=== PATIENT | female | born 1935 | race American Indian/Alaskan Native ===

== ENCOUNTER 2018-10-28 09:22 | Inpatient (IN) | payer MEDICARE ==
[2018-10-28] MEDS ORDERED: Dextrose 50% SYRINGE Inj (50 ml) IVP STA (09:54)
[2018-10-28 10:14] LABS: BASO # 0.01 K/mm3 (0.0-2.0); BASO % 0.2 % (0.0-3.0); EOS # 0.1 (0.0-0.7); GRAN # 4.75 (1.4-6.5); GRAN % 75.6 % (50.0-68.0); HEMOGLOBIN 8.7 g/dL (12.0-16.0); LYMPH # 0.8 (1.2-3.4); LYMPH % 13.2 % (22.0-35.0); MEAN CELL VOLUME 88.5 fl (80.0-105.0); MEAN CORPUSCULAR HEMOGLOBIN 25.7 pg (25.0-35.0); MEAN CORPUSCULAR HGB CONC 29.1 g/dl (31.0-37.0); MEAN PLATELET VOLUME 11.7 fl (7.0-11.0); MONO # 0.6 (0.1-0.6); RBC 3.38 10^6/uL (3.5-6.1); RED CELL DISTRIBUTION WIDTH 16.7 % (11.5-14.5); WHITE BLOOD COUNT 6.3 10^3/uL (4.5-11.0)
[2018-10-28 10:23] LABS: INR 1.06; PARTIAL THROMBOPLASTIN TIME 27.8 Seconds (25.1-36.5); PROTHROMBIN TIME 12.2 SECONDS (9.4-12.5)
--- NOTE | 2018-10-28 10:40 | RAD ---
Date of service: 10/28/2018 HISTORY: admission COMPARISON: No prior. FINDINGS: LUNGS: Moderate vascular congestion PLEURA: Right-sided pleural effusion CARDIOVASCULAR: Aortic calcification. Moderate cardiomegaly. Moderate vascular congestion OSSEOUS STRUCTURES: No significant abnormalities. VISUALIZED UPPER ABDOMEN: Normal. OTHER FINDINGS: None. IMPRESSION: Moderate cardiomegaly and moderate vascular congestion with right-sided pleural effusion
--- NOTE | 2018-10-28 12:36 | ED PDOC ---
Arrival/HPI - General Chief Complaint: Altered Mental Status Time Seen by Provider: 10/28/18 09:45 Historian: Patient, EMS - History of Present Illness Narrative History of Present Illness (Text): 10/28/18 12:42 83 year old female, whose past medical history includes hypertension, diabetes, arthritis, and a cholecystectomy, presents to the emergency department complaining of hypoglycemia. Patient was sent in from halfway, they report a sugar level of 33. EMS was called and they administered 2 glucagon in field, patient sugar level increased to 53. Patient was seen immediately upon arrival and a repeat finger stick was taken which was reportedly 113. On arrival patient denies any somatic complaints, fevers, chills, headache, dizziness, chest pain, shortness of breath, dyspnea on exertion, cough, abdominal pain, nausea, vomiting, diarrhea, back pain, neck pain, or any other complaint. PMD: Dr. Bean Time/Duration: Prior to Arrival Symptom Onset: Gradual Symptom Course: Improving Activities at Onset: Light Context: Home (halfway) Past Medical History - Provider Review Nursing Documentation Reviewed: Yes - Infectious Disease Hx of Infectious Diseases: None - Cardiac Hx Cardiac Disorders: Yes Hx Hypertension: Yes - Pulmonary Hx Respiratory Disorders: No - Neurological Hx Neurological Disorder: No - HEENT Hx HEENT Disorder: No - Renal Hx Renal Disorder: No - Endocrine/Metabolic Hx Endocrine Disorders: Yes Hx Diabetes Mellitus Type 2: Yes - Hematological/Oncological Hx Blood Disorders: No - Integumentary Hx Dermatological Disorder: No - Musculoskeletal/Rheumatological Hx Musculoskeletal Disorders: Yes Hx Arthritis: Yes Hx Falls: No - Gastrointestinal Hx Gastrointestinal Disorders: No Hx Crohn's Disease: No Hx Diverticulitis: No Hx Gall Bladder Disease: No Hx Gastritis: No Hx Pancreatitis: No - Genitourinary/Gynecological Hx Genitourinary Disorders: No - Psychiatric Hx Psychophysiologic Disorder: No Hx Substance Use: No - Surgical History Hx Cholecystectomy: Yes (over 10 yrs. ago) - Anesthesia Hx Anesthesia: Yes Hx Anesthesia Reactions: No Hx Malignant Hyperthermia: No Family/Social History - Physician Review Nursing Documentation Reviewed: Yes Family/Social History: No Known Family HX Smoking Status: Former Smoker Hx Alcohol Use: No Hx Substance Use: No Allergies/Home Meds Allergies/Adverse Reactions: Allergies No Known Allergies Allergy (Verified 09/26/18 18:03) Review of Systems - Physician Review All systems were reviewed & negative as marked: Yes - Review of Systems Constitutional: absent: Fevers Respiratory: absent: SOB, Cough Cardiovascular: absent: Chest Pain Gastrointestinal: absent: Abdominal Pain, Diarrhea, Nausea, Vomiting Musculoskeletal: absent: Back Pain, Neck Pain Neurological: absent: Headache, Dizziness Physical Exam Vital Signs Reviewed: Yes Vital Signs Temp 10/28/18 10:10 93.1 F L Temperature: Hypothermic Appearance: Positive for: Well-Appearing, Non-Toxic, Comfortable Pain Distress: None Mental Status: Positive for: Alert and Oriented X 3 - Systems Exam Head: Present: Atraumatic, Normocephalic Pupils: Present: PERRL Extroacular Muscles: Present: EOMI Conjunctiva: Present: Normal Mouth: Present: Moist Mucous Membranes Neck: Present: Normal Range of Motion Respiratory/Chest: Present: Clear to Auscultation, Good Air Exchange. No: Respiratory Distress, Accessory Muscle Use Cardiovascular: Present: Regular Rate and Rhythm, Normal S1, S2. No: Murmurs Abdomen: No: Tenderness, Distention, Peritoneal Signs Back: Present: Normal Inspection Upper Extremity: Present: Normal Inspection. No: Cyanosis, Edema Lower Extremity: Present: Normal Inspection. No: Edema Neurological: Present: GCS=15, CN II-XII Intact, Speech Normal Skin: Present: Warm, Dry, Normal Color, Cold (hypothermic temp of 93.1 ). No: Rashes Psychiatric: Present: Alert, Oriented x 3, Normal Insight, Normal Concentration Medical Decision Making ED Course and Treatment: 10/28/18 12:35 Impression: 83 year old female who presents to the emergency department for hypoglycemia. Plan: -- EKG -- Labs -- Chest X-ray -- Dextrose -- Urinalysis -- Reassess and disposition Progress Notes: 10/28/18 12:[address] Bean, while in emergency department and he saw patient by the bedside in emergency department and accepted pt to her service. Requested Dr. Stevenson consult. 10/28/18 19:06 Labs was reviewed she was anemic which is comparable to her previous lab. elevated Cr was noted which was also comparable to her previous labs. Chest xray IMPRESSION: Moderate cardiomegaly and moderate vascular congestion with right-sided pleural effusion EKG NSR @ 69bpm. LBBB. None-STEMI Pt remained AAO x3 in emergency department . She was however hypothermic and bear hugger was ordered while in emergency department . Hypothermia could be secondary to hypoglycemia. She was however started on empiric abx. Blood culture pending. - Lab Interpretations Lab Results: 10/28/18 10:00 Lab Results 10/28/18 10:59: POC Glucose (mg/dL) 113 H 10/28/18 10:00: PT 12.2, INR 1.06, APTT 27.8 10/28/18 10:00: WBC 6.3, RBC 3.38 L, Hgb 8.7 L, Hct 29.9 L, MCV 88.5, MCH 25.7, MCHC 29.1 L, RDW 16.7 H, Plt Count 276, MPV 11.7 H, Gran % 75.6 H, Lymph % (Auto) 13.2 L, [place] % (Auto) 10.0 H, Eos % (Auto) 1.0 L, Baso % (Auto) 0.2, Gran # 4.75, Lymph # (Auto) 0.8 L, [place] # (Auto) 0.6, Eos # (Auto) 0.1, Baso # (Auto) 0.01 10/28/18 09:33: POC Glucose (mg/dL) 59 L - RAD Interpretation Radiology Orders: 10/28/18 09:53 CHEST PORTABLE [RAD] Stat - Medication Orders Current Medication Orders: Discontinued Medications Dextrose (Dextrose 50% Inj) 50 ml IVP STAT STA Stop: 10/28/18 09:55 Last Admin: 10/28/18 10:09 Dose: 50 ml IVP Administration Document 10/28/18 10:09 AMA (Rec: 10/28/18 10:09 AMA [id number]) Charges for Administration # of IVP Administrations 1 - Scribe Statement The provider has reviewed the documentation as recorded by the Westonibgladys Mark Provider Scribe Attestation: All medical record entries made by the Scribe were at my direction and personally dictated by me. I have reviewed the chart and agree that the record accurately reflects my personal performance of the history, physical exam, medical decision making, and the department course for this patient. I have also personally directed, reviewed, and agree with the discharge instructions and disposition. Disposition/Present on Arrival - Present on Arrival Any Indicators Present on Arrival: No History of DVT/PE: No History of Uncontrolled Diabetes: Yes Urinary Catheter: No History of Decub. Ulcer: No History Surgical Site Infection Following: None - Disposition Have Diagnosis and Disposition been Completed?: Yes Diagnosis: Pleural effusion, Hypoglycemia, Hypothermia, CKD (chronic kidney disease), Anemia Disposition: HOSPITALIZED Disposition Time: 12:45 Patient Plan: Admission Patient Problems: Current Active Problems Problem Status Onset CKD (chronic kidney disease) Acute Hypoglycemia Acute Hypothermia Acute Pleural effusion Acute Condition: FAIR
[2018-10-28] MEDS ORDERED: Piperacillin/Tazobact 2.25gm 2.25 GM/100 ML BAG IVPB STA (12:52)
[2018-10-28] MEDS ORDERED: Vancomycin 1gm in NS 250ml 1 GM/250 ML BAG IVPB STA (12:52)
[2018-10-28 12:59] LABS: ALB/GLOB RATIO 0.8 (1.1-1.8); ALBUMIN 2.9 g/dL (3.0-4.8); CALCIUM 8.5 mg/dL (8.4-10.5)
[2018-10-28 13:44] LABS: TROPONIN I 0.03 ng/mL
--- NOTE | 2018-10-28 14:53 | CARD ---
APPROVED REPORT Date of service: 10/28/2018 EKG Measurement Heart [id number] <Conclusion> Normal sinus rhythm Left bundle branch block
[2018-10-28 16:05] LABS: VENOUS BLOOD GAS BASE EXCESS 3.4 mmol/L (0.0-2.0); VENOUS BLOOD GAS PO2 132 mm/Hg (30-55); VENOUS BLOOD PH 7.42 (7.32-7.43)
[2018-10-28] MEDS: Albuterol-Ipratrop 3 mg / 0.5 (3 ml) UD IH SCH (19:30)
--- NOTE | 2018-10-28 19:35 | CP.PCM.CON ---
History of Present Illness - History of Present Illness History of Present Illness: Infectious Disease Consultation: October 28, 2018 83 yo AA female with PMHx of hypertension, arthritis, and diabetes presented to [facility] with hypoglycemia The patient is a [facility] resident. Glucose of 33 in the field. Patient appears awake and alert now. Patient was hypothermic on admission with temperature down to 93.1 F. PMHx: Hypertension, Arthritis, Diabetes. PSHx: Cholecystectomy 10 yrs ago. Allergies: NKDA Social Hx: No tobacco, EtOH, or illicit drug use Active Medications Albuterol/Ipratropium (Duoneb 3 Mg/0.5 Mg (3 Ml) Ud) 3 ml IH [id number] DOUGLAS Atorvastatin Calcium (Lipitor) 10 mg PO DIN [facility] Last Admin: 10/28/18 17:12 Dose: 10 mg Docusate Sodium (Colace) 100 mg PO TID [facility] Last Admin: 10/28/18 17:12 Dose: 100 mg Ferrous Sulfate (Feosol) 324 mg PO DAILY DOUGLAS Furosemide (Lasix) 40 mg PO DAILY DOUGLAS Gabapentin (Neurontin) 100 mg PO TID [facility]; Protocol Last Admin: 10/28/18 17:12 Dose: 100 mg Guaifenesin (Robitussin) 200 mg PO Q4H PRN PRN Reason: Cough and congestion Hydralazine HCl (Apresoline) 100 mg PO TID [facility] Last Admin: 10/28/18 17:12 Dose: 100 mg Insulin Human Regular (Humulin R Low) 0 units SC ACHS [facility]; Protocol Lactulose (Enulose) 20 gm PO DAILY PRN PRN Reason: Constipation Levofloxacin (Levaquin) 500 mg PO DAILY [facility]; Protocol Methylprednisolone (Solu-Medrol) 60 mg IVP Q6 [facility] Last Admin: 10/28/18 17:12 Dose: 60 mg Pantoprazole Sodium (Protonix Ec Tab) 20 mg PO 0600,1600 [facility] Vitamin B Complex/Vit C/Folic Acid (Nephro-Quin) 1 tab PO 0800 [facility] Family Hx: None given ROS: Hypothermia, Hypoglycemia No chest pain, abdominal pain, melena, hematuria, hematemesis, hematochezia, depression, anxiety, diarrhea, vomiting Past Patient History - Infectious Disease Hx of Infectious Diseases: None - Past Medical History & Family History Past Medical History?: Yes - Past Social History Smoking Status: Former Smoker - CARDIAC Hx Cardiac Disorders: Yes Hx Hypertension: Yes - PULMONARY Hx Respiratory Disorders: No - NEUROLOGICAL Hx Neurological Disorder: No - HEENT Hx HEENT Problems: No - RENAL Hx Chronic Kidney Disease: No - ENDOCRINE/METABOLIC Hx Endocrine Disorders: Yes Hx Diabetes Mellitus Type 2: Yes - HEMATOLOGICAL/ONCOLOGICAL Hx Blood Disorders: No - INTEGUMENTARY Hx Dermatological Problems: No - MUSCULOSKELETAL/RHEUMATOLOGICAL Hx Musculoskeletal Disorders: Yes Hx Arthritis: Yes Hx Falls: No - GASTROINTESTINAL Hx Gastrointestinal Disorders: No Hx Crohn's Disease: No Hx Diverticulitis: No Hx Gall Bladder Disease: No Hx Gastritis: No Hx Pancreatitis: No - GENITOURINARY/GYNECOLOGICAL Hx Genitourinary Disorders: No - PSYCHIATRIC Hx Psychophysiologic Disorder: No Hx Substance Use: No - SURGICAL HISTORY Hx Cholecystectomy: Yes (over 10 yrs. ago) - ANESTHESIA Hx Anesthesia: Yes Hx Anesthesia Reactions: No Hx Malignant Hyperthermia: No Meds Allergies/Adverse Reactions: Allergies Allergy/AdvReac Type Severity Reaction Status Date / Time No Known Allergies Allergy Verified 09/26/18 18:03 - Medications Medications: Current Medications Albuterol/Ipratropium (Duoneb 3 Mg/0.5 Mg (3 Ml) Ud) 3 ml IH [id number] [facility] Atorvastatin Calcium (Lipitor) 10 mg PO DIN [facility] Last Admin: 10/28/18 17:12 Dose: 10 mg Docusate Sodium (Colace) 100 mg PO TID [facility] Last Admin: 10/28/18 17:12 Dose: 100 mg Ferrous Sulfate (Feosol) 324 mg PO DAILY [facility] Furosemide (Lasix) 40 mg PO DAILY [facility] Gabapentin (Neurontin) 100 mg PO TID [facility]; Protocol Last Admin: 10/28/18 17:12 Dose: 100 mg Guaifenesin (Robitussin) 200 mg PO Q4H PRN PRN Reason: Cough and congestion Hydralazine HCl (Apresoline) 100 mg PO TID [facility] Last Admin: 10/28/18 17:12 Dose: 100 mg Insulin Human Regular (Humulin R Low) 0 units SC ACHS [facility]; Protocol Lactulose (Enulose) 20 gm PO DAILY PRN PRN Reason: Constipation Levofloxacin (Levaquin) 500 mg PO DAILY [facility]; Protocol Methylprednisolone (Solu-Medrol) 60 mg IVP Q6 [facility] Last Admin: 10/28/18 17:12 Dose: 60 mg Pantoprazole Sodium (Protonix Ec Tab) 20 mg PO 0600,1600 DOUGLAS Vitamin B Complex/Vit C/Folic Acid (Nephro-Quin) 1 tab PO 0800 [facility] Physical Exam - Constitutional Appears: Non-toxic, No Acute Distress, Chronically Ill - Head Exam Head Exam: ATRAUMATIC, NORMOCEPHALIC - Eye Exam Eye Exam: EOMI, PERRL Pupil Exam: NORMAL ACCOMODATION, PERRL - ENT Exam ENT Exam: Mucous Membranes Moist, Normal External Ear Exam, TM's Normal Bilaterally - Neck Exam Neck exam: Positive for: Full Rom, Normal Inspection - Respiratory Exam Respiratory Exam: Clear to Auscultation Bilateral, NORMAL BREATHING PATTERN. absent: Rales, Rhonchi, Wheezes - Cardiovascular Exam Cardiovascular Exam: REGULAR RHYTHM, RRR, +S1, +S2 - GI/Abdominal Exam GI & Abdominal Exam: Normal Bowel Sounds, Soft. absent: Distended, Tenderness - Extremities Exam Extremities exam: Positive for: full ROM, normal inspection - Neurological Exam Neurological exam: Alert, CN II-XII Intact, Oriented x3 - Psychiatric Exam Psychiatric exam: Normal Affect, Normal Mood - Skin Skin Exam: Intact, Normal Color Results - Vital Signs Recent Vital Signs: Last Vital Signs Temp 97.6 F 10/28/18 16:25 Pulse 78 10/28/18 16:25 Resp 18 10/28/18 16:25 BP 183/65 H 10/28/18 16:25 Pulse Ox 99 10/28/18 16:25 - Labs Result Diagrams: 10/28/18 10:00 10/28/18 12:27 Labs: Laboratory Results - last 24 hr 10/28/18 10/28/18 10/28/18 09:33 10:00 10:00 WBC 6.3 RBC 3.38 L Hgb 8.7 L Hct 29.9 L MCV 88.5 MCH 25.7 MCHC 29.1 L RDW 16.7 H Plt Count 276 MPV 11.7 H Gran % 75.6 H Lymph % (Auto) 13.2 L Pierce % (Auto) 10.0 H Eos % (Auto) 1.0 L Baso % (Auto) 0.2 Gran # 4.75 Lymph # (Auto) 0.8 L Pierce # (Auto) 0.6 Eos # (Auto) 0.1 Baso # (Auto) 0.01 PT 12.2 INR 1.06 APTT 27.8 pO2 VBG pH VBG pCO2 VBG HCO3 VBG Total CO2 VBG O2 Sat (Calc) VBG Base Excess VBG Potassium Glucose Lactate FiO2 Sodium Potassium Chloride Carbon Dioxide Anion Gap BUN Creatinine Est GFR ( Amer) Est GFR (Non-Af Amer) POC Glucose (mg/dL) 59 L Random Glucose Calcium Magnesium Total Bilirubin AST ALT Alkaline Phosphatase Lactate Dehydrogenase Total Creatine Kinase Troponin I Total Protein Albumin Globulin Albumin/Globulin Ratio Venous Blood Potassium Influenza Typ A,B (EIA) 10/28/18 10/28/18 10/28/18 10:59 12:27 13:40 WBC RBC Hgb Hct MCV MCH MCHC RDW Plt Count MPV Gran % Lymph % (Auto) Pierce % (Auto) Eos % (Auto) Baso % (Auto) Gran # Lymph # (Auto) Pierce # (Auto) Eos # (Auto) Baso # (Auto) PT INR APTT pO2 VBG pH VBG pCO2 VBG HCO3 VBG Total CO2 VBG O2 Sat (Calc) VBG Base Excess VBG Potassium Glucose Lactate FiO2 Sodium 144 Potassium 4.3 Chloride 108 H Carbon Dioxide 29 Anion Gap 11 BUN 33 H Creatinine 2.7 H Est GFR ( Amer) 20 Est GFR (Non-Af Amer) 17 POC Glucose (mg/dL) 113 H Random Glucose 102 Calcium 8.5 Magnesium 1.8 Total Bilirubin 0.2 AST 20 ALT 19 Alkaline Phosphatase 139 H D Lactate Dehydrogenase 530 Total Creatine Kinase 31 L Troponin I 0.03 Total Protein 6.7 Albumin 2.9 L Globulin 3.8 Albumin/Globulin Ratio 0.8 L Venous Blood Potassium Influenza Typ A,B (EIA) Negative for flu a/b 10/28/18 10/28/18 10/28/18 14:40 15:50 16:21 WBC RBC Hgb Hct MCV MCH MCHC RDW Plt Count MPV Gran % Lymph % (Auto) Pierce % (Auto) Eos % (Auto) Baso % (Auto) Gran # Lymph # (Auto) Pierce # (Auto) Eos # (Auto) Baso # (Auto) PT INR APTT pO2 132 H VBG pH 7.42 VBG pCO2 44.0 VBG HCO3 28.5 H VBG Total CO2 29.9 H VBG O2 Sat (Calc) 99.5 H VBG Base Excess 3.4 H VBG Potassium 4.4 Glucose 77 Lactate 0.8 FiO2 21.0 Sodium 143.0 Potassium Chloride 109.0 H Carbon Dioxide Anion Gap BUN Creatinine Est GFR ( Amer) Est GFR (Non-Af Amer) POC Glucose (mg/dL) 60 L 64 L Random Glucose Calcium Magnesium Total Bilirubin AST ALT Alkaline Phosphatase Lactate Dehydrogenase Total Creatine Kinase Troponin I Total Protein Albumin Globulin Albumin/Globulin Ratio Venous Blood Potassium 4.4 Influenza Typ A,B (EIA) Assessment & Plan - Assessment and Plan (Free Text) Assessment: 83 yo AA female with hypoglycemia and hypothermia on presentation from [facility]. No leukocytosis. Chest X-ray showing moderate cardiomegaly and moderate vascular congestion with right sided pleural effusion. Started on Vancomycin IV and Zosyn. Continue with Zosyn for now. Supportive care. Check urine culture and analysis. Given hypothermia, must rule out sepsis. Supportive care. Thank you for allowing me to participate in the care of the patient, we will follow with you.
[2018-10-28] MEDS: Piperacillin/Tazobact 2.25gm 2.25 GM/100 ML BAG IVPB SCH (22:22)
[2018-10-28 22:27] VITALS: BMI 35.4
[2018-10-28] MEDS ORDERED: Pneumococcal 23-Valent Vaccine IM ONE (22:27)
[2018-10-28] MEDS ORDERED: Influenza Vaccine 60 mcg/0.5 mL SYR (4YR UP) IM ONE (22:27)
[2018-10-28] MEDS: Insulin Reg-LOW-Coverage SC SCH (23:57)
[2018-10-29] MEDS: Albuterol-Ipratrop 3 mg / 0.5 (3 ml) UD IH SCH ×7 (00:01→23:19)
--- NOTE | 2018-10-29 00:51 | HP ---
DATE OF EXAM: 10/28/2018 The patient is an 83-year-old female. The patient was seen and examined on 10/28/2018 in the emergency room. CHIEF COMPLAINT: Altered mental status. HISTORY OF PRESENT ILLNESS: Ms. Lisa Armendariz is an 83-year-old female with past medical history of hypertension, diabetes mellitus, arthritis, and cholecystectomy, came to the Emergency Department, complaining of hypoglycemia. The patient was in [facility], was sent from there for low sugar level of 33. EMS was called and they administered 2 Glucagon in the field. The patient's sugar increased to 53. The patient was seen immediately upon arrival and repeat fingerstick was taken, which shows sugar of 113. On arrival, the patient denies any somatic complaints. No fever. No chills. No nausea. No vomiting. No diarrhea. No hematuria. No hematochezia. No headache. No dizziness. No chest pain. No palpitation. PAST MEDICAL HISTORY: Hypertension, diabetes mellitus, obesity, arthritis, and cholecystectomy. FAMILY HISTORY: Father, mother noncontributory. HABITS: Former smoker. No substance abuse. No alcohol. ALLERGIES: THE PATIENT IS NOT ALLERGIC WITH ANY MEDICATIONS. REVIEW OF SYSTEMS: The patient was seen and examined at the bedside. Looking comfortable. No fever. No shortness of breath. No chest pain. No diarrhea. No nausea. No vomiting. No back pain. No neck pain. No headache. No dizziness. PHYSICAL EXAMINATION VITAL SIGNS: Temperature 97.6, pulse 78, blood pressure 182/65 and respiratory rate 18. HEENT: Head; normocephalic, atraumatic. Eyes; PERRLA. Extraocular muscles are intact. Conjunctivae clear. Nose patent. NECK: Supple. No carotid bruits. No JVD or thyromegaly. CHEST: Bilaterally symmetrical. CARDIOPULMONARY: S1 and S2 positive. LUNGS: Clear to auscultation. ABDOMEN: Soft. Bowel sounds present. No organomegaly. EXTREMITIES: No edema. No cyanosis. NEUROLOGIC: The patient is awake and alert. Moving all 4 extremities. No focal deficit. LABORATORY DATA: White blood cells 6.3, hemoglobin 8.7, hematocrit 29.9, and platelets 276. Sodium 144, potassium 4.3, BUN 33, creatinine 2.7, glucose 113. ASSESSMENT AND PLAN: Ms. Lisa Armendariz is an 83-year-old lady with anemia, hyperchloremia, renal insufficiency, hyperglycemia, abnormal liver function test, influenza type A and B is negative. Coagulation profile is within normal limits. Came with attack of hypoglycemia. Has history of hypertension, arthritis, and diabetes mellitus. In retirement, the patient's glucose was 33 and on admission, her temperature was down to 93.1 came the retirement facility. Chest x-ray showing moderate cardiomegaly and moderate vascular condition, has right-sided pleural effusions. Started the patient on vancomycin and Zosyn. Rule out sepsis. Continue Zosyn for now. Check urinalysis and blood cultures. Supportive care. When the patient came in the ER, heating blanket was given, the temperature went up. Discussion done with ER physician, nursing staff and the patient by herself. Infectious Disease is on the case. Gastrointestinal and deep venous thrombosis prophylaxis. The patient has history of hypothermia, hypoglycemia, chronic kidney disease and pleural effusion. We will follow up. Mandy Bean MD MTDD
--- NOTE | 2018-10-29 02:20 | CON ---
DATE: 10/28/2018 REFERRING PHYSICIAN: Dr. Bean. REASON FOR CONSULTATION: Cough, shortness of breath, admitted with hypoglycemia, has lower extremity ulcers. HISTORY OF PRESENT ILLNESS: This is an 83 years old female with multiple medical issues including hypertension, diabetes, osteoarthritis, comes in to emergency room with hypoglycemia at home, blood sugar was 33, in the hospital it was 113, but having cough, shortness of breath, wheezing. No nausea, no vomiting or diarrhea. Has bilateral lower leg swelling, skin breakdown, and ulcers. Admits to have snoring, daytime sleepy and tired. PAST MEDICAL HISTORY: As per history of present illness. ALLERGIES: NONE KNOWN. SOCIAL HISTORY: Former smoker. Denies any alcohol use. FAMILY HISTORY: No significant cardiopulmonary disease reported. MEDICATIONS: She is on hydralazine 100 mg three times a day, Colace 100 mg three times a day, DuoNeb every 4 hours round the clock, lactulose 20 g daily p.r.n., ferrous sulfate 324 mg daily, insulin coverage, Lasix 40 mg daily, Levaquin 500 mg daily, Lipitor 10 mg daily, Nephro vitamins daily, gabapentin 100 mg three times a day, Protonix 20 mg twice a day, Robitussin 200 mg every 4 hours p.r.n., Solu-Medrol 60 mg every 6 hours, and Zosyn 2.25 g IV every 8 hours. REVIEW OF SYSTEMS: No headache, no rhinitis. Has a cough, shortness of breath, wheezing. No chest pain. No nausea, no vomiting. No dysuria. Has leg swelling with oozing ulcers of lower extremities. Neurological, awake and follows simple commands. LABORATORY DATA: Hemoglobin 8.7, hematocrit 29.9, WBC 6.3, platelet is 276. INR 1.06. PTT 28. VBG showed pH 7.42, pCO2 of 44, O2 of 132. Sodium 144, potassium 4.3, chloride 108, bicarbonate 29, BUN 33, creatinine 2.7, glucose 102, calcium is 8.5, magnesium 1.8, AST 20, ALT 19, alk phos is 139. Troponin less than 0.03. Albumin is 2.9. Influenza A and B were negative. Chest x-ray done in ER showed moderate cardiomegaly and moderate vascular congestion with right-sided pleural effusion. 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 Agree with the present management. We will decrease Solu-Medrol to 40 every 12 hours. Continue inhaled bronchodilator. Continue Zosyn for now. She has a CAT scan done at [facility] a few weeks ago, which shows bilateral pleural effusion with a lower lobe consolidation. She does have a right lower lobe stable mass. She also had a perfusion scan of heart done in [facility], which shows LV ejection fraction was more than 55%. An echocardiogram done early this month shows LV ejection fraction 70% and reported that there was no pulmonary hypertension, right ventricular systolic pressure at that time reported 26, so probably she is just fluid overloaded secondary to renal failure. There may also be component of sleep apnea syndrome. Keep head elevated at 45 degrees. We will get procalcitonin in the morning. Gastric prophylaxis, DVT prophylaxis. Thank you and we will follow with you. Monique Stevenson MD
[2018-10-29] MEDS ORDERED: Pantoprazole 40 mg EC Tab PO SCH (06:00)
[2018-10-29] MEDS: Pantoprazole 20 mg EC Tab PO SCH ×2 (06:03→17:06)
[2018-10-29] MEDS: Piperacillin/Tazobact 2.25gm 2.25 GM/100 ML BAG IVPB SCH ×3 (06:04→21:18)
[2018-10-29 08:19] LABS: HEMOGLOBIN 8.2 g/dL (12.0-16.0); MEAN CELL VOLUME 87.6 fl (80.0-105.0); MEAN CORPUSCULAR HEMOGLOBIN 26.1 pg (25.0-35.0); MEAN CORPUSCULAR HGB CONC 29.8 g/dl (31.0-37.0); MEAN PLATELET VOLUME 11.3 fl (7.0-11.0); RBC 3.14 10^6/uL (3.5-6.1); RED CELL DISTRIBUTION WIDTH 16.7 % (11.5-14.5); WHITE BLOOD COUNT 5.3 10^3/uL (4.5-11.0)
[2018-10-29 08:30] LABS: IRON 59 ug/dL (45-180)
[2018-10-29 08:40] LABS: % IRON SATURATION 28 % (20-55); TOTAL IRON BINDING CAPACITY 210 ug/dL (265-497)
[2018-10-29] MEDS: Insulin Reg-LOW-Coverage SC SCH ×4 (08:46→22:25)
[2018-10-29 08:51] LABS: ALB/GLOB RATIO 0.8 (1.1-1.8); ALBUMIN 2.9 g/dL (3.0-4.8); CALCIUM 8.1 mg/dL (8.4-10.5)
[2018-10-29] MEDS: Multivitamin Vitamin B Complex (Nephro-Vite) Tab PO SCH (09:18)
[2018-10-29] MEDS: guaiFENesin 200 mg/10 ml Syrup UD PO PRN (09:18)
[2018-10-29] MEDS: levoFLOXacin 500 MG TAB PO SCH (09:19)
[2018-10-29] MEDS: MethylPREDNISolone 40 mg Vial IVP SCH ×3 (09:21→21:15)
--- NOTE | 2018-10-29 10:04 | CP.PCM.APN ---
Subjective - Date & Time of Evaluation Date of Evaluation: 10/29/18 Time of Evaluation: 08:45 - Subjective Subjective: Pt seen and examined at bedside. She is AAOx3, and in no acute distress. +cough. Denies chest pain or shortness of breath. Objective - Vital Signs/Intake and Output Vital Signs (last 24 hours): Temp Pulse Resp BP Pulse Ox 98 F 94 H 20 153/60 H 100 10/29/18 06:00 10/29/18 06:00 10/29/18 06:00 10/29/18 06:05 10/29/18 06:00 - Medications Medications: Current Medications Albuterol/Ipratropium (Duoneb 3 Mg/0.5 Mg (3 Ml) Ud) 3 ml IH [id number] [facility] Last Admin: 10/29/18 07:31 Dose: 3 ml Atorvastatin Calcium (Lipitor) 10 mg PO DIN [facility] Last Admin: 10/28/18 17:12 Dose: 10 mg Docusate Sodium (Colace) 100 mg PO TID [facility] Last Admin: 10/29/18 09:19 Dose: 100 mg Ferrous Sulfate (Feosol) 324 mg PO DAILY [facility] Last Admin: 10/29/18 09:18 Dose: 324 mg Furosemide (Lasix) 40 mg PO Q8 [facility] Last Admin: 10/29/18 06:05 Dose: 40 mg Gabapentin (Neurontin) 100 mg PO TID [facility]; Protocol Last Admin: 10/29/18 09:18 Dose: 100 mg Guaifenesin (Robitussin) 200 mg PO Q4H PRN PRN Reason: Cough and congestion Last Admin: 10/29/18 09:18 Dose: 200 mg Hydralazine HCl (Apresoline) 100 mg PO TID [facility] Last Admin: 10/29/18 09:18 Dose: 100 mg Piperacillin Sod/Tazobactam Sod (Zosyn 2.25 Gm In 0.9% 100 Ml) 2.25 gm in 100 mls @ 100 mls/hr IVPB Q8 [facility]; Protocol Last Admin: 10/29/18 06:04 Dose: 100 mls/hr Insulin Human Regular (Humulin R Low) 0 units SC ACHS [facility]; Protocol Last Admin: 10/29/18 08:46 Dose: Not Given Lactulose (Enulose) 20 gm PO DAILY PRN PRN Reason: Constipation Levofloxacin (Levaquin) 500 mg PO DAILY [facility]; Protocol Last Admin: 10/29/18 09:19 Dose: 500 mg Methylprednisolone (Solu-Medrol) 40 mg IVP Q12 [facility] Last Admin: 10/29/18 09:21 Dose: 40 mg Pantoprazole Sodium (Protonix Ec Tab) 20 mg PO 0600,1600 [facility] Last Admin: 10/29/18 06:03 Dose: 20 mg Vitamin B Complex/Vit C/Folic Acid (Nephro-Quin) 1 tab PO 0800 [facility] Last Admin: 10/29/18 09:18 Dose: 1 tab - Labs Labs: 10/29/18 08:00 10/29/18 08:00 PT 12.2 SECONDS (9.4-12.5) 10/28/18 10:00 INR 1.06 10/28/18 10:00 APTT 27.8 Seconds (25.1-36.5) 10/28/18 10:00 - Constitutional Appears: Well, No Acute Distress - Head Exam Head Exam: ATRAUMATIC - Eye Exam Eye Exam: Normal appearance - ENT Exam ENT Exam: Mucous Membranes Moist - Neck Exam Neck Exam: Full ROM - Respiratory Exam Respiratory Exam: Wheezes - Cardiovascular Exam Cardiovascular Exam: REGULAR RHYTHM, +S1, +S2 - GI/Abdominal Exam GI & Abdominal Exam: Soft, Normal Bowel Sounds - Rectal Exam Rectal Exam: Deferred - Extremities Exam Additional comments: +swelling on sakina lower ext - Neurological Exam Neurological Exam: Alert, Awake, Oriented x3 Assessment and Plan - Assessment and Plan (Free Text) Assessment: Pt is an 83 y.o. female with pmhx of HTN, DM, arthritis, and CKD who was brought in ED for hypoglycemia with BS of 33. In ED, her temperature was 93.1 but now maintaining at 98. Her Hgb was noted to be 8.2 which is comparable to her previous Hgb. No overt signs of bleeding. Impressions Chest X-Ray 10/28/18 09:53 IMPRESSION: Moderate cardiomegaly and moderate vascular congestion with right-sided pleural effusion Plan: Monitor blood sugar Monitor H/H Pending FOB C/W nebulizer treatments On Solumedrol IV/Zosyn IV/Lasix Pending procalcitonin ID and Pulmonology on consult Physical therapy pending Will continue to follow
[2018-10-29 13:27] LABS: FOLATE 12.3 ng/mL
--- NOTE | 2018-10-29 13:34 | CP.PCM.PN ---
Subjective - Date & Time of Evaluation Date of Evaluation: 10/29/18 Time of Evaluation: 12:30 - Subjective Subjective: Infectious Disease Follow Up: October 29, 2018 83 yo AA female with PMHx of hypertension, arthritis, and diabetes presented to [facility] with hypoglycemia The patient is a [facility] resident. Glucose of 33 in the field. Patient appears awake and alert now. Patient was hypothermic on admission with temperature down to 93.1 F. Temperatures normalized today. No new issues. Feeling better. Objective - Vital Signs/Intake and Output Vital Signs (last 24 hours): Temp Pulse Resp BP Pulse Ox 98 F 94 H 20 153/60 H 100 10/29/18 06:00 10/29/18 06:00 10/29/18 06:00 10/29/18 06:05 10/29/18 06:00 - Medications Medications: Current Medications Albuterol/Ipratropium (Duoneb 3 Mg/0.5 Mg (3 Ml) Ud) 3 ml IH [id number] [facility] Last Admin: 10/29/18 11:33 Dose: 3 ml Atorvastatin Calcium (Lipitor) 10 mg PO DIN [facility] Last Admin: 10/28/18 17:12 Dose: 10 mg Docusate Sodium (Colace) 100 mg PO TID [facility] Last Admin: 10/29/18 09:19 Dose: 100 mg Ferrous Sulfate (Feosol) 324 mg PO DAILY [facility] Last Admin: 10/29/18 09:18 Dose: 324 mg Furosemide (Lasix) 40 mg PO Q8 [facility] Last Admin: 10/29/18 06:05 Dose: 40 mg Gabapentin (Neurontin) 100 mg PO TID [facility]; Protocol Last Admin: 10/29/18 09:18 Dose: 100 mg Guaifenesin (Robitussin) 200 mg PO Q4H PRN PRN Reason: Cough and congestion Last Admin: 10/29/18 09:18 Dose: 200 mg Hydralazine HCl (Apresoline) 100 mg PO TID [facility] Last Admin: 10/29/18 09:18 Dose: 100 mg Piperacillin Sod/Tazobactam Sod (Zosyn 2.25 Gm In 0.9% 100 Ml) 2.25 gm in 100 mls @ 100 mls/hr IVPB Q8 [facility]; Protocol Last Admin: 10/29/18 06:04 Dose: 100 mls/hr Insulin Human Regular (Humulin R Low) 0 units SC ACHS [facility]; Protocol Last Admin: 10/29/18 11:55 Dose: 2 units Lactulose (Enulose) 20 gm PO DAILY PRN PRN Reason: Constipation Levofloxacin (Levaquin) 500 mg PO DAILY [facility]; Protocol Last Admin: 10/29/18 09:19 Dose: 500 mg Methylprednisolone (Solu-Medrol) 40 mg IVP Q12 [facility] Last Admin: 10/29/18 09:21 Dose: 40 mg Pantoprazole Sodium (Protonix Ec Tab) 20 mg PO 0600,1600 [facility] Last Admin: 10/29/18 06:03 Dose: 20 mg Vitamin B Complex/Vit C/Folic Acid (Nephro-Quin) 1 tab PO 0800 [facility] Last Admin: 10/29/18 09:18 Dose: 1 tab - Labs Labs: 10/29/18 08:00 10/29/18 08:00 PT 12.2 SECONDS (9.4-12.5) 10/28/18 10:00 INR 1.06 10/28/18 10:00 APTT 27.8 Seconds (25.1-36.5) 10/28/18 10:00 - Constitutional Appears: Non-toxic, No Acute Distress, Chronically Ill - Head Exam Head Exam: ATRAUMATIC, NORMOCEPHALIC - Eye Exam Eye Exam: EOMI, PERRL Pupil Exam: NORMAL ACCOMODATION, PERRL - ENT Exam ENT Exam: Mucous Membranes Moist, Normal External Ear Exam, TM's Normal Bilaterally - Neck Exam Neck Exam: Full ROM, Normal Inspection - Respiratory Exam Respiratory Exam: Clear to Ausculation Bilateral, NORMAL BREATHING PATTERN. absent: Rales, Rhonchi, Wheezes - Cardiovascular Exam Cardiovascular Exam: REGULAR RHYTHM, RRR, +S1, +S2 - GI/Abdominal Exam GI & Abdominal Exam: Soft, Normal Bowel Sounds. absent: Distended, Tenderness - Extremities Exam Extremities Exam: Full ROM, Normal Inspection - Neurological Exam Neurological Exam: Alert, Awake, CN II-XII Intact, Oriented x3 - Psychiatric Exam Psychiatric exam: Normal Affect, Normal Mood - Skin Skin Exam: Intact, Normal Color Assessment and Plan - Assessment and Plan (Free Text) Assessment: 83 yo AA female with hypoglycemia and hypothermia on presentation from [facility]. No leukocytosis. Chest X-ray showing moderate cardiomegaly and moderate vascular congestion with right sided pleural effusion. Started on Vancomycin IV and Zosyn. Continue with Zosyn for now. Supportive care. Check urine culture and analysis. Noted that patient is incontinent of urine. Supposedly there are recent positive cultures for urine at [facility] Given hypothermia, must rule out sepsis. Supportive care. Procalcitonin of 8.23. Thank you for allowing me to participate in the care of the patient, we will follow with you.
--- NOTE | 2018-10-29 16:18 | PN ---
PULMONARY PROGRESS NOTE DATE: 10/29/2018 SUBJECTIVE: The patient is sitting up in bed. No acute distress. Reports having a cough, with some shortness of breath with exertion. No headache, rhinitis, chest pain, abdominal pain, nausea, vomiting, diarrhea or leg pain reported. OBJECTIVE: GENERAL: No acute distress. VITAL SIGNS: Blood pressure 153/60, pulse 94, temperature 98, and oxygen saturation 100%. HEENT: Moist mucous membranes. Mallampati score of 4. NECK: Supple. No JVD. RESPIRATORY: Positive rhonchi bilaterally. CARDIOVASCULAR: S1 and S2 audible. ABDOMEN: Soft and nontender. No distention. No organomegaly. EXTREMITIES: Positive bilateral lower extremity edema. NEUROLOGIC: Awake, alert and verbal. Follows commands. MEDICATIONS: Reviewed. DuoNeb 3 mL inhalation every 4 hours, Lipitor 10 mg at dinner, Colace 100 mg three times a day, ferrous sulphate 324 mg daily, Lasix 40 mg every 8 hours, Neurontin 100 mg thee times a day, Robitussin 200 mg every 4 hours p.r.n., hydralazine 100 mg three times a day, Humulin R sliding scale, Lactulose 20 g p.o. daily p.r.n., Levaquin 500 mg p.o. daily, Solu-Medrol 40 mg IV push every 12 hours, Protonix 20 mg twice a day, Zosyn 2.25 g every 8 hours and Nephro-Quin one tab daily. LABORATORY DATA: Reviewed. WBC 5.3, RBC 3.14, hemoglobin 8.2, hematocrit 27.5 and platelets 244. Sodium 142, potassium 4.9, chloride 108, carbon dioxide 24, anion gap 16, BUN 33, creatinine 2.7, GFR 20, POC glucose 232, random glucose 156, calcium 8.1, total bilirubin 0.3, AST 18, ALT 27, alkaline phosphatase 134, total protein 6.6, albumin 2.9, globulin 3.7 and albumin-globulin ratio 0.8. TSH 1.87. IMPRESSION AND PLAN: Pleural effusion by congestion, suspected sleep apnea syndrome, chronic renal failure which may be causing fluid overload, need to monitor BUN and creatinine closely. Monitor H&H closely. We will start the patient on continuous positive airway pressure at 7 cm and FiO2 of 30%. Continue steroids, inhaled bronchodilators, antibiotics, sleep apnea precaution, head of bed elevated at 45 degrees and gastric prophylaxis. We will start the patient on sequential compression devices. Will not do chemical deep venous prophylaxis due to current anemia status, risk of bleeding. Procalcitonin level pending. This patient was seen and examined with Dr. Stevenson. Discussed assessment and plan as described above. Thank you for this consult. We will follow with you. Tommy Guzmán APN Monique Stevenson MD MTDAna
[2018-10-29 17:06] LABS: URINE APPEARANCE SLIGHT-CLOUDY (CLEAR); URINE BILIRUBIN NEGATIVE (NEGATIVE); URINE BLOOD NEGATIVE (NEGATIVE); URINE COLOR LIGHT YELLOW (YELLOW); URINE GLUCOSE (UA) NEGATIVE (NEGATIVE); URINE LEUKOCYTE ESTERASE MODERATE Leu/uL (NEGATIVE); URINE PROTEIN 30 mg/dL (<30 mg/dL); URINE UROBILINOGEN 0.2 E.U./dL (<1 E.U./dL)
[2018-10-29 17:10] LABS: URINE RBC 0 - 2 /hpf (0-2)
[2018-10-29 17:11] LABS: URINE BACTERIA FEW /hpf
--- NOTE | 2018-10-30 03:41 | PN ---
DATE: 10/29/2018 SUBJECTIVE: The patient is 83-year-old female. The patient was seen and examined at the bedside, 10/29/2018. Looking comfortable. No fever. No chills. No hematuria. No hematochezia. No swelling of the legs. No headache, no dizziness. Do not look like in distress but coughing once in a while. Denies chest pain or shortness of breath. PHYSICAL EXAMINATION: VITAL SIGNS: Temperature 98, pulse 94, respirations 20, blood pressure 153/60, pulse oximetry 100. HEENT: Normocephalic, atraumatic. Eyes PERRLA. Extraocular muscle intact. Conjunctiva clear. Nose patent. NECK: Supple. No carotid bruit. No JVD or thyromegaly. CHEST: Bilaterally symmetrical. HEART: S1, S2, positive. LUNGS: Clear to auscultation. ABDOMEN: Soft. Bowel sounds present. No organomegaly. EXTREMITIES: No edema. No cyanosis. NEUROLOGIC: The patient awake, alert. Moving all four extremities. No focal deficit. MEDICATIONS: Albuterol, Lipitor, Colace, iron, Lasix, Neurontin, Robitussin, hydralazine, Zosyn, insulin, lactulose, Levaquin, Solu-Medrol, pantoprazole, vitamin B. LABORATORY DATA: White blood cells 5.3, hemoglobin 8.2, hematocrit 27.5, platelets 244. Sodium 142, potassium 4.2, BUN 30, creatinine 2.7, glucose 156. ASSESSMENT AND PLAN: Ms. Lisa Armendariz is an 83-year-old female with anemia, renal insufficiency, hyperglycemia, hyperchloremia, has history of hypertension, diabetes mellitus, arthritis, chronic kidney disease, came into the emergency room with episodes of hypoglycemia, blood sugar was 33, temperature 93.1, but now temperature is maintained to 98. No overt signs of bleeding. Has cardiomegaly with moderate vascular congestion with right-sided pleural effusion. We are monitoring blood sugar, monitoring hemoglobin and hematocrit, Continue present treatment on Solu-Medrol and Zosyn. Pending prolactin. Infectious Disease and Pulmonary are on the case. Physical therapy. Gastrointestinal and deep venous thrombosis prophylaxis. Appreciated Elvia Stroud' notes. Repeat labs. Out of bed, physical therapy. Family on the bed side , the patient was sitting on the bedside. Discussion done, all questions answered. Continue antibiotics as per Dr. Marquez. We will follow up. Mandy Bean MD MELISSA
[2018-10-30] MEDS: Albuterol-Ipratrop 3 mg / 0.5 (3 ml) UD IH SCH ×5 (05:03→20:47)
[2018-10-30] MEDS: Pantoprazole 20 mg EC Tab PO SCH ×2 (06:11→19:55)
[2018-10-30] MEDS: Piperacillin/Tazobact 2.25gm 2.25 GM/100 ML BAG IVPB SCH ×3 (06:13→21:55)
[2018-10-30] MEDS: Insulin Reg-LOW-Coverage SC SCH ×3 (08:36→18:01)
[2018-10-30 08:45] LABS: BASO # 0.01 K/mm3 (0.0-2.0); BASO % 0.1 % (0.0-3.0); GRAN # 5.78 (1.4-6.5); GRAN % 77.8 % (50.0-68.0); HEMOGLOBIN 7.7 g/dL (12.0-16.0); LYMPH # 1.1 (1.2-3.4); LYMPH % 15.2 % (22.0-35.0); MEAN CORPUSCULAR HEMOGLOBIN 26.5 pg (25.0-35.0); MEAN CORPUSCULAR HGB CONC 30.1 g/dl (31.0-37.0); MEAN PLATELET VOLUME 11.3 fl (7.0-11.0); MONO # 0.5 (0.1-0.6); MONO % 6.9 % (1.0-6.0); RBC 2.91 10^6/uL (3.5-6.1); RED CELL DISTRIBUTION WIDTH 16.8 % (11.5-14.5); WHITE BLOOD COUNT 7.4 10^3/uL (4.5-11.0)
[2018-10-30] MEDS: levoFLOXacin 500 MG TAB PO SCH (09:22)
[2018-10-30] MEDS: Multivitamin Vitamin B Complex (Nephro-Vite) Tab PO SCH (09:22)
[2018-10-30] MEDS: MethylPREDNISolone 40 mg Vial IVP SCH ×2 (09:23→21:55)
[2018-10-30 09:25] LABS: ALB/GLOB RATIO 0.8 (1.1-1.8); ALBUMIN 2.9 g/dL (3.0-4.8); CALCIUM 7.8 mg/dL (8.4-10.5)
--- NOTE | 2018-10-30 17:10 | CP.PCM.PN ---
Subjective - Date & Time of Evaluation Date of Evaluation: 10/30/18 Time of Evaluation: 15:45 - Subjective Subjective: Infectious Disease Follow Up: October 30, 2018 83 yo AA female with PMHx of hypertension, arthritis, and diabetes presented to [facility] with hypoglycemia The patient is a [facility] resident. Glucose of 33 in the field. Patient appears awake and alert now. Patient was hypothermic on admission with temperature down to 93.1 F. Temperatures normalized today. No new issues. Feeling better. Cultures of u rine still pending. Urinalysis strongly suggestive of UTI. Objective - Vital Signs/Intake and Output Vital Signs (last 24 hours): Temp Pulse Resp BP Pulse Ox 97.9 F 83 20 159/64 H 99 10/30/18 14:00 10/30/18 14:00 10/30/18 14:00 10/30/18 14:00 10/30/18 14:00 Intake and Output: 10/30/18 10/30/18 06:59 18:59 Intake Total 120 Output Total 25 Balance 95 - Medications Medications: Current Medications Albuterol/Ipratropium (Duoneb 3 Mg/0.5 Mg (3 Ml) Ud) 3 ml IH [id number] [facility] Last Admin: 10/30/18 05:03 Dose: 3 ml Atorvastatin Calcium (Lipitor) 10 mg PO DIN [facility] Last Admin: 10/29/18 17:06 Dose: 10 mg Docusate Sodium (Colace) 100 mg PO TID [facility] Last Admin: 10/30/18 15:26 Dose: Not Given Ferrous Sulfate (Feosol) 324 mg PO DAILY [facility] Last Admin: 10/30/18 09:23 Dose: 324 mg Furosemide (Lasix) 40 mg PO DAILY [facility] Last Admin: 10/30/18 09:22 Dose: 40 mg Gabapentin (Neurontin) 100 mg PO TID [facility]; Protocol Last Admin: 10/30/18 13:34 Dose: 100 mg Guaifenesin (Robitussin) 200 mg PO Q4H PRN PRN Reason: Cough and congestion Last Admin: 10/29/18 09:18 Dose: 200 mg Hydralazine HCl (Apresoline) 100 mg PO TID [facility] Last Admin: 10/30/18 13:34 Dose: 100 mg Piperacillin Sod/Tazobactam Sod (Zosyn 2.25 Gm In 0.9% 100 Ml) 2.25 gm in 100 mls @ 100 mls/hr IVPB Q8 [facility]; Protocol Last Admin: 10/30/18 13:33 Dose: 100 mls/hr Insulin Human Regular (Humulin R Low) 0 units SC ACHS [facility]; Protocol Last Admin: 10/30/18 12:10 Dose: 2 units Lactulose (Enulose) 20 gm PO DAILY PRN PRN Reason: Constipation Levofloxacin (Levaquin) 500 mg PO DAILY [facility]; Protocol Last Admin: 10/30/18 09:22 Dose: 500 mg Methylprednisolone (Solu-Medrol) 40 mg IVP Q12 [facility] Last Admin: 10/30/18 09:23 Dose: 40 mg Pantoprazole Sodium (Protonix Ec Tab) 20 mg PO 0600,1600 [facility] Last Admin: 10/30/18 06:11 Dose: 20 mg Vitamin B Complex/Vit C/Folic Acid (Nephro-Quin) 1 tab PO 0800 [facility] Last Admin: 10/30/18 09:22 Dose: 1 tab - Labs Labs: 10/30/18 08:00 10/30/18 06:00 PT 12.2 SECONDS (9.4-12.5) 10/28/18 10:00 INR 1.06 10/28/18 10:00 APTT 27.8 Seconds (25.1-36.5) 10/28/18 10:00 - Constitutional Appears: Non-toxic, No Acute Distress, Chronically Ill - Head Exam Head Exam: ATRAUMATIC, NORMOCEPHALIC - Eye Exam Eye Exam: EOMI, PERRL Pupil Exam: NORMAL ACCOMODATION, PERRL - ENT Exam ENT Exam: Mucous Membranes Moist, Normal External Ear Exam, TM's Normal Bilaterally - Neck Exam Neck Exam: Full ROM, Normal Inspection - Respiratory Exam Respiratory Exam: Clear to Ausculation Bilateral, NORMAL BREATHING PATTERN. absent: Rales, Rhonchi, Wheezes - Cardiovascular Exam Cardiovascular Exam: REGULAR RHYTHM, RRR, +S1, +S2 - GI/Abdominal Exam GI & Abdominal Exam: Soft, Normal Bowel Sounds. absent: Distended, Tenderness - Extremities Exam Extremities Exam: Full ROM, Normal Inspection - Neurological Exam Neurological Exam: Alert, Awake, CN II-XII Intact, Oriented x3 - Psychiatric Exam Psychiatric exam: Normal Affect, Normal Mood - Skin Skin Exam: Intact, Normal Color Assessment and Plan - Assessment and Plan (Free Text) Assessment: 83 yo AA female with hypoglycemia and hypothermia on presentation from [facility]. No leukocytosis. Chest X-ray showing moderate cardiomegaly and moderate vascular congestion with right sided pleural effusion. Started on Vancomycin IV and Zosyn. Continue with Zosyn for now. Supportive care. Check urine culture and analysis. Noted that patient is incontinent of urine. Suppo sedly there are recent positive cultures for urine at [facility] Given hypothermia, must rule out sepsis. Urinalysis strongly suggestive of UTI. Supportive care. Procalcitonin of 8.23. Thank you for allowing me to participate in the care of the patient, we will follow with you.
--- NOTE | 2018-10-30 19:15 | PN ---
DATE: 10/30/2018 PULMONARY PROGRESS NOTE REFERRING PHYSICIAN: Dr. Bean. SUBJECTIVE: Patient is lying in bed. No acute distress. No overnight events reported. Patient reports improvement in shortness of breath and cough. No headache, rhinitis, chest pain, abdominal pain, nausea, vomiting, diarrhea, leg pain reported. OBJECTIVE: VITAL SIGNS: Blood pressure 159/64, pulse 83, temperature 97.9, oxygen saturation 99%. GENERAL: No acute distress. HEENT: Moist mucous membranes. Mallampati score of 4. NECK: Supple. No JVD. RESPIRATORY: Few rhonchi bilaterally. Mild audible wheezing. CARDIOVASCULAR: S1, S2 audible. ABDOMEN: Soft and nontender. No distention, no organomegaly. EXTREMITIES: Positive bilateral lower extremity edema. NEUROLOGIC: Awake, alert, verbal. Follows commands. MEDICATIONS: Reviewed. DuoNeb 3 mL inhalation every 4 hours, Lipitor 10 mg at dinner, Colace 100 mg three times a day, ferrous sulphate 324 mg daily, Lasix 40 mg daily, Neurontin 100 mg three times a day, Robitussin 200 mg every 4 hours p.r.n., hydralazine 100 mg three times a day, Humulin R sliding scale, Lactulose 20 g p.o. daily p.r.n., Levaquin 500 mg p.o. daily, Solu-Medrol 40 mg IV push every 12 hours, Protonix 20 mg twice a day, Zosyn 2.25 g every 8 hours, Nephro-Quin one tab daily. LABORATORY DATA: Reviewed. WBC 7.4, RBC 2.91, hemoglobin 7.7, hematocrit 25.6, platelets 238. Sodium 140, potassium 5.1, chloride 107, carbon dioxide 27, anion gap 12, BUN 43, creatinine 3, GFR 18, POC glucose 245, random glucose 256, calcium 7.8, total bilirubin 0.3. AST 22, ALT 23, alkaline phosphatase 121, total protein 6.4, albumin 2.9, globulin 3.5, albumin-globulin ratio 0.8. IMPRESSION AND PLAN: Pleural effusion with vascular congestion, suspected sleep apnea syndrome, chronic renal failure. Patient presently with Swann catheter due to urinary retention. Continue continuous positive airway pressure use at bedtime. Sleep apnea precautions. Head of bed elevated 45 degrees. Continue steroids, inhaled bronchodilators, antibiotic therapy, gastric prophylaxis. Continue sequential compression devices for deep venous thrombosis prophylaxis. Need to monitor H&H closely. We will order laboratories in the morning. This patient was seen and examined with Dr. Stevenson. Discussed assessment and plan as described above. Thank you for this consult. We will follow with you. Tommy Guzmán APN Monique Stevenson MD
[2018-10-31] MEDS: Albuterol-Ipratrop 3 mg / 0.5 (3 ml) UD IH SCH ×6 (01:38→21:10)
[2018-10-31] MEDS: Pantoprazole 20 mg EC Tab PO SCH ×2 (06:18→17:16)
[2018-10-31] MEDS: Piperacillin/Tazobact 2.25gm 2.25 GM/100 ML BAG IVPB SCH ×3 (06:18→22:10)
[2018-10-31 07:34] LABS: GRAN # 6.99 (1.4-6.5); HEMOGLOBIN 7.6 g/dL (12.0-16.0); LYMPH # 1.3 (1.2-3.4); LYMPH % 15.1 % (22.0-35.0); MEAN CORPUSCULAR HGB CONC 29.6 g/dl (31.0-37.0); MONO # 0.5 (0.1-0.6); MONO % 5.9 % (1.0-6.0); RBC 2.92 10^6/uL (3.5-6.1); RED CELL DISTRIBUTION WIDTH 16.6 % (11.5-14.5); WHITE BLOOD COUNT 8.9 10^3/uL (4.5-11.0)
[2018-10-31 07:44] LABS: ALB/GLOB RATIO 0.9 (1.1-1.8); CALCIUM 7.7 mg/dL (8.4-10.5)
[2018-10-31] MEDS: Insulin Reg-LOW-Coverage SC SCH ×4 (09:52→22:08)
[2018-10-31] MEDS: Multivitamin Vitamin B Complex (Nephro-Vite) Tab PO SCH (09:53)
[2018-10-31] MEDS: levoFLOXacin 500 MG TAB PO SCH (09:53)
[2018-10-31] MEDS: MethylPREDNISolone 40 mg Vial IVP SCH ×2 (09:54→22:09)
--- NOTE | 2018-10-31 15:12 | PN ---
DATE: 10/30/2018 SUBJECTIVE: The patient was seen and examined on 10/30/2018, looking comfortable. No fever. No chills. Family was around. No headache, no dizziness. No chest pain or palpitations. Cough and shortness of breath is better. PHYSICAL EXAMINATION: VITAL SIGNS: Blood pressure 151/64, pulse 83, temperature 97.9 and oxygen saturation 99. HEENT: Head normocephalic, atraumatic. Eyes PERRLA. Extraocular muscle intact. Conjunctivae clear. Nose patent. NECK: Supple. No carotid bruit. No JVD or thyromegaly. CHEST: Bilaterally symmetrical. HEART: S1 and S2, positive. LUNGS: Clear to auscultation. ABDOMEN: Soft. Bowel sounds present. No organomegaly. EXTREMITIES: No edema. No cyanosis. NEUROLOGIC: The patient is awake, alert. Moving all four extremities. No focal deficit. MEDICATIONS: DuoNeb, Lipitor, Colace, ferrous sulphate, Lasix, Neurontin, Robitussin, lactulose, Levaquin, Solu-Medrol tapering doses. LABORATORY DATA: White blood cells 7.4, hemoglobin 7.7, hematocrit 25.6. Sodium 140, BUN 46, creatinine is 3, glucose of 245. ASSESSMENT AND PLAN: Ms. Lisa Armendariz is an 83-year-old lady with multiple medical problems of pleural effusion with vascular congestion, suspected sleep apnea syndrome, chronic renal failure, obesity. The patient has Swann catheter due to urinary retention. Continue continuous positive airway pressure use at bedtime. Sleep apnea precautions. Continue steroids, inhaled bronchodilators, gastric prophylaxis. Continue sequential compression devices, gastrointestinal prophylaxis , appreciate Dr. Stevenson's input. Discussion held with the family. We will follow. Mandy Bean MD MTDD
--- NOTE | 2018-10-31 17:05 | CP.PCM.PN ---
Subjective - Date & Time of Evaluation Date of Evaluation: 10/31/18 Time of Evaluation: 14:45 - Subjective Subjective: Infectious Disease Follow Up: October 31, 2018 83 yo AA female with PMHx of hypertension, arthritis, and diabetes presented to [facility] with hypoglycemia The patient is a [place] resident. Glucose of 33 in the field. Patient appears awake and alert now. Patient was hypothermic on admission with temperature down to 93.1 F. Temperatures normalized today. No new issues. Feeling better. Cultures of u rine still pending. Urinalysis strongly suggestive of UTI. Cultures of urine taken after at least 24 hours of antibiotics so the urine culture might not grow any organisms. Objective - Vital Signs/Intake and Output Vital Signs (last 24 hours): Temp Pulse Resp BP Pulse Ox 98.4 F 84 20 146/54 L 99 10/31/18 06:00 10/31/18 09:53 10/31/18 06:00 10/31/18 13:56 10/31/18 06:00 Intake and Output: 10/31/18 10/31/18 06:59 18:59 Intake Total 240 Output Total 525 Balance -285 - Medications Medications: Current Medications Albuterol/Ipratropium (Duoneb 3 Mg/0.5 Mg (3 Ml) Ud) 3 ml IH [id number] COUNTS [facility]CLUDE 234 BEDS AT THE [facility] Last Admin: 10/31/18 14:30 Dose: Not Given Atorvastatin Calcium (Lipitor) 10 mg PO DIN COUNTS INCLUDE 234 BEDS AT THE [facility] Last Admin: 10/30/18 17:53 Dose: 10 mg Docusate Sodium (Colace) 100 mg PO TID COUNTS INCLUDE 234 BEDS AT THE [facility] Last Admin: 10/31/18 13:55 Dose: Not Given Ferrous Sulfate (Feosol) 324 mg PO DAILY COUNTS INCLUDE 234 BEDS AT THE [facility] Last Admin: 10/31/18 09:52 Dose: 324 mg Furosemide (Lasix) 40 mg PO DAILY COUNTS INCLUDE 234 BEDS AT THE [facility] Last Admin: 10/31/18 09:53 Dose: 40 mg Gabapentin (Neurontin) 100 mg PO TID COUNTS INCLUDE 234 BEDS AT THE [facility]; Protocol Last Admin: 10/31/18 13:56 Dose: 100 mg Guaifenesin (Robitussin) 200 mg PO Q4H PRN PRN Reason: Cough and congestion Last Admin: 10/29/18 09:18 Dose: 200 mg Hydralazine HCl (Apresoline) 100 mg PO TID COUNTS INCLUDE 234 BEDS AT THE [facility] Last Admin: 10/31/18 13:56 Dose: 100 mg Piperacillin Sod/Tazobactam Sod (Zosyn 2.25 Gm In 0.9% 100 Ml) 2.25 gm in 100 mls @ 100 mls/hr IVPB Q8 COUNTS INCLUDE 234 BEDS AT THE [facility]; Protocol Last Admin: 10/31/18 13:55 Dose: 100 mls/hr Insulin Human Regular (Humulin R Low) 0 units SC ACHS COUNTS INCLUDE 234 BEDS AT THE [facility]; Protocol Last Admin: 10/31/18 16:47 Dose: 5 units Lactulose (Enulose) 20 gm PO DAILY PRN PRN Reason: Constipation Levofloxacin (Levaquin) 250 mg PO QOTHERDAY COUNTS INCLUDE 234 BEDS AT THE [facility]; Protocol Methylprednisolone (Solu-Medrol) 20 mg IVP Q12 COUNTS INCLUDE 234 BEDS AT THE [facility] Pantoprazole Sodium (Protonix Ec Tab) 20 mg PO 0600,1600 COUNTS INCLUDE 234 BEDS AT THE [facility] Last Admin: 10/31/18 06:18 Dose: 20 mg Vitamin B Complex/Vit C/Folic Acid (Nephro-Quin) 1 tab PO 0800 COUNTS INCLUDE 234 BEDS AT THE [facility] Last Admin: 10/31/18 09:53 Dose: 1 tab - Labs Labs: 10/31/18 07:00 10/31/18 07:00 PT 12.2 SECONDS (9.4-12.5) 10/28/18 10:00 INR 1.06 10/28/18 10:00 APTT 27.8 Seconds (25.1-36.5) 10/28/18 10:00 - Constitutional Appears: Non-toxic, No Acute Distress, Chronically Ill - Head Exam Head Exam: ATRAUMATIC, NORMOCEPHALIC - Eye Exam Eye Exam: EOMI, PERRL Pupil Exam: NORMAL ACCOMODATION, PERRL - ENT Exam ENT Exam: Mucous Membranes Moist, Normal External Ear Exam, TM's Normal Bilaterally - Neck Exam Neck Exam: Full ROM, Normal Inspection - Respiratory Exam Respiratory Exam: Clear to Ausculation Bilateral, NORMAL BREATHING PATTERN. absent: Rales, Rhonchi, Wheezes - Cardiovascular Exam Cardiovascular Exam: REGULAR RHYTHM, RRR, +S1, +S2 - GI/Abdominal Exam GI & Abdominal Exam: Soft, Normal Bowel Sounds. absent: Distended, Tenderness - Extremities Exam Extremities Exam: Full ROM, Normal Inspection - Neurological Exam Neurological Exam: Alert, Awake, CN II-XII Intact, Oriented x3 - Psychiatric Exam Psychiatric exam: Normal Affect, Normal Mood - Skin Skin Exam: Intact, Normal Color Assessment and Plan - Assessment and Plan (Free Text) Assessment: 83 yo AA female with hypoglycemia and hypothermia on presentation from [facility]. No leukocytosis. Chest X-ray showing moderate cardiomegaly and moderate vascular congestion with right sided pleural effusion. Started on Vancomycin IV and Zosyn. Continue with Zosyn for now. Supportive care. Check urine culture and analysis. Noted that patient is incontinent of urine. Supposedly there are recent positive cultures for urine at [facility] Given hypothermia, must rule out sepsis. Urinalysis strongly suggestive of UTI. Urine cultures negative but they were taken 24 hours after starting antibiotics. Supportive care. Procalcitonin of 8.23. Can retest procalcitonin. Remains on Zosyn. Thank you for allowing me to participate in the care of the patient, we will follow with you.
[2018-10-31] MEDS ORDERED: MethylPREDNISolone 40 mg Vial IVP SCH (22:00)
[2018-10-31 22:59] VITALS: O2SAT 98
--- NOTE | 2018-11-01 01:27 | PN ---
DATE: 10/31/2018 SUBJECTIVE: The patient is an 83-year-old female. The patient was seen and examined at the bedside on 10/31/2018, looking comfortable. Cough is better. Shortness of breath is better. Still feeling fatigued and tired. No headache or dizziness. No chest pain. No palpitation. No swelling of the legs. PHYSICAL EXAMINATION: VITAL SIGNS: Temperature 98.4, pulse 84, respiratory rate 20, blood pressure 142/54, pulse oximetry 99. HEENT: Head: Normocephalic, atraumatic. Eyes: PERRLA. Extraocular muscles are intact. Conjunctivae clear. Nose patent. Mucous membranes moist. NECK: Supple. No carotid bruit. No JVD or thyromegaly. CHEST: Bilaterally symmetrical. HEART: S1 and S2, positive. LUNGS: Clear to auscultation. ABDOMEN: Soft. Bowel sounds present. No organomegaly. EXTREMITIES: No edema. No cyanosis. NEUROLOGICAL: The patient is awake and alert. Moving all 4 extremities. No focal deficit. MEDICATIONS: DuoNeb, Lipitor, Colace, ferrous sulfate, Lasix, Neurontin, Robitussin, hydralazine, Zosyn, lactulose, levofloxacin, Protonix, vitamins. LABORATORY DATA: White blood cell is 8.6, hemoglobin 7.6, hematocrit 25.7, platelets 216. Sodium 142, potassium 5, BUN 50, creatinine 3.5, glucose 247. ASSESSMENT AND PLAN: Ms. Lisa Armendariz is an 83-year-old female with anemia, hyperchloremia, renal insufficiency, hyperglycemia, now came with hypoglycemia and hypotension from [facility]. Chest x-ray is showing moderate cardiomegaly and moderate vascular congestion with right-sided pleural effusion, getting vancomycin and Zosyn. Continue Zosyn for now, supportive care, check urine culture and analysis. The patient to continue with the urine. Supposedly, there are recent positive cultures for urine at [facility]. Given the hypothermia, must rule out sepsis, stones suggestive of urinary tract infection. Urine culture is negative, but they were taken 24 hours after starting antibiotics, supportive care. Prolactin 8.23, can retest prolactin. Continue Zosyn. Gastrointestinal and deep venous thrombosis prophylaxis. Out of bed, physical therapy. Seen by Dr. Marquez and Dr. Stevenson's notes. Rule out sleep apnea syndrome. 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 Continue positive pressure airway at bedtime, sleep apnea precautions. Continue steroid-inhaled bronchodilators. Monitoring H and H, because it is low. We will follow up. Mandy Bean MD MTDD
[2018-11-01] MEDS: Albuterol-Ipratrop 3 mg / 0.5 (3 ml) UD IH SCH ×4 (01:50→15:56)
[2018-11-01] MEDS: Piperacillin/Tazobact 2.25gm 2.25 GM/100 ML BAG IVPB SCH ×2 (05:54→13:48)
[2018-11-01 07:18] LABS: HEMOGLOBIN 7.5 g/dL (12.0-16.0); MEAN CELL VOLUME 88.5 fl (80.0-105.0); MEAN CORPUSCULAR HGB CONC 29.4 g/dl (31.0-37.0); MEAN PLATELET VOLUME 11.1 fl (7.0-11.0); RBC 2.88 10^6/uL (3.5-6.1); RED CELL DISTRIBUTION WIDTH 16.5 % (11.5-14.5); WHITE BLOOD COUNT 10.4 10^3/uL (4.5-11.0)
[2018-11-01 07:32] LABS: ALBUMIN 3.1 g/dL (3.0-4.8); CALCIUM 7.8 mg/dL (8.4-10.5)
[2018-11-01] MEDS: Insulin Reg-LOW-Coverage SC SCH ×4 (07:37→17:46)
[2018-11-01] MEDS: Multivitamin Vitamin B Complex (Nephro-Vite) Tab PO SCH (08:37)
[2018-11-01] MEDS ORDERED: Sod Polystyrene Sulf 15 gm/60 ml Susp PO ONE (08:51)
[2018-11-01] MEDS: MethylPREDNISolone 40 mg Vial IVP SCH (09:08)
--- NOTE | 2018-11-01 09:18 | PN ---
DATE: 10/31/2018 PULMONARY PROGRESS NOTE REFERRING PHYSICIAN: Mandy Bean MD SUBJECTIVE: She is lying in the bed. Night was unremarkable, tolerated CPAP well. Feels better. No headache, no rhinitis. No chest pain. No nausea, no vomiting, no diarrhea. Decreased leg swelling. OBJECTIVE: GENERAL: In no acute distress. VITAL SIGNS: Temperature is 98, heart rate is 84, respiratory rate is 20, blood pressure 146/54, pulse ox 99% on nasal cannula. HEENT: Moist mucous membrane. Crowded airway. Mallampati score is 4. NECK: Supple. No JVD. LUNGS: Fair airflow with few rhonchi. HEART: S1 and S2. ABDOMEN: Soft, nontender, no organomegaly. EXTREMITIES: Decreased edema. SKIN: Breakdown looks better. NEUROLOGIC: Awake and alert, follows simple command. MEDICATIONS: She is on hydralazine 100 mg 3 times a day, Colace 100 mg 3 times a day, DuoNeb every 4 hours, also lactulose 20 g p.o. p.r.n., ferrous sulfate 324 mg daily, insulin coverage, Lasix 40 mg daily, Levaquin 500 mg daily, Lipitor 10 mg daily, vitamin B complex 1 tablet daily, gabapentin 100 mg 3 times a day, Protonix 20 mg twice a day, Robitussin 200 mg every 4 hours p.r.n., Solu-Medrol 30 mg every 12 hours, Zosyn 2.25 g IV every 8 hours. LABORATORY DATA: Shows hemoglobin 7.6, hematocrit 25.7, WBC 8.9, platelet is 216. Sodium 142, potassium 5, chloride 108, bicarbonate 26, BUN 50, creatinine 3.5, glucose 247, calcium is 7.7. AST 24, ALT 23, alk phos is 123, albumin is 3. Microbiology, urine culture seems contaminated. IMPRESSION AND PLAN: Pleural effusion, vascular congestion, suspected sleep apnea syndrome, chronic renal failure, anemia, history of cardiomyopathy. Agree with the present management. We will taper off steroids next day or so. Agree with decreasing diuretics. Gastric prophylaxis, DVT prophylaxis. We will recommend sleep study upon discharge as outpatient, PFT as outpatient. Fall precaution. Will benefit from rehab. Thank you, and we will follow with you. Monique Stevenson MD [facility] # [id number]
--- NOTE | 2018-11-01 09:27 | PN ---
DATE: 10/30/2018 SUBJECTIVE: The patient is a 83-year-old female. The patient was seen and examined at the bedside on 10/30/2018. Looking comfortable. No fever. No chills. No hematuria. No hematochezia. No headache. No dizziness. No chest pain. No palpitation. PHYSICAL EXAMINATION: VITAL SIGNS: Blood pressure 150/60, pulse 88, temperature 97.9, and oxygen saturation 99%. HEENT: Head, normocephalic and atraumatic. Eyes, PERRLA. Extraocular muscles intact. Conjunctivae clear. Nose patent. Mucous membranes moist. NECK: Supple. No carotid bruit. No JVD or thyromegaly. CHEST: Bilaterally symmetrical. HEART: S1, S2 positive. LUNGS: Clear to auscultation. ABDOMEN: Soft. Bowel sounds present. No organomegaly. EXTREMITIES: Bilateral lower extremity edema. NEUROLOGIC: Awake, alert. Follows simple commands. MEDICATIONS: DuoNeb, Colace, ferrous sulfate, Lasix, Robitussin, hydralazine, insulin, lactulose, Solu-Medrol, Protonix, LABORATORY DATA: White blood cell 7.4, hemoglobin 12.5, hematocrit 35.6, platelets 338. Sodium 140, potassium 5.1, BUN 43, creatinine 0.2, and glucose 245, ASSESSMENT AND PLAN: The patient is an 83-year-old lady with anemia, acute on chronic, vascular congestion, I suspected sleep apnea syndrome, chronic renal failure. The patient has Swann catheter with urinary retention. Continue present treatment. Continue gastrointestinal and deep venous thrombosis prophylaxes. Repeat laboratories. We will follow up. Mandy Bean MD MTDD
[2018-11-01] MEDS ORDERED: Darbepoetin Alfa 100 mcg/ml Inj SC ONE (10:12)
[2018-11-01] MEDS ORDERED: Albuterol-Ipratrop 3 mg / 0.5 (3 ml) UD IH PRN (11:39)
--- NOTE | 2018-11-01 13:11 | PN ---
PULMONARY PROGRESS NOTE DATE: 11/01/2018 REFERRING PHYSICIAN: Mandy Bean MD SUBJECTIVE: The patient seen laying in bed. No acute distress. No overnight events reported. Reports using CPAP last night. Reports shortness of breath and cough has improved. No headache, rhinitis, chest pain, abdominal pain, nausea, vomiting, diarrhea, leg pain reported. OBJECTIVE: GENERAL: No acute distress. VITAL SIGNS: Blood pressure 154/57, pulse 81, temperature 98.1, oxygen saturation 98% on room air. HEENT: Moist mucous membranes. Crowded airway. Mallampati score of 4. NECK: Supple. No JVD. LUNGS: Few rhonchi bilaterally. CARDIOVASCULAR: S1 and S2 audible. ABDOMEN: Soft and nontender. No distention. No organomegaly. EXTREMITIES: Trace edema bilateral lower extremities. NEUROLOGIC: Awake, alert, verbal, and follows commands. MEDICATIONS: Reviewed. DuoNeb 3 mL inhalation every 4 hours, DuoNeb 3 mL inhalation every 2 hours p.r.n., Lipitor 10 mg at dinner, Colace 100 mg three times a day, ferrous sulphate 324 mg p.o. daily, Lasix 40 mg daily, Neurontin 100 mg thee times a day, Robitussin 200 mg every 4 hours p.r.n., hydralazine 100 mg three times a day, Humulin R sliding scale, Lactulose 20 grams daily p.r.n., Levaquin 250 mg , Solu-Medrol 40 mg IV push every 12 hours, Protonix 20 mg twice a day, Zosyn 2.25 grams every 8 hours and Nephro-Quin one tab daily. LABORATORY DATA: Reviewed. WBC 10.4, RBC 2.8, hemoglobin 7.5, hematocrit 25.5, and platelets 215. Sodium 140, potassium 5.1, chloride 106, carbon dioxide 25, anion gap 12, BUN 59, creatinine 3.6. GFR 15, POC glucose 209, and random glucose 223. Calcium 7.8, total bilirubin 0.3, AST 37, ALT 23, alkaline phosphatase 118, total protein 6.3, albumin 3.1, globulin 3.2, albumin-globulin ratio 1. Stool occult blood positive. Urine culture on 10/29/2018 showed multiple species within 1000 probably contaminated. IMPRESSION AND PLAN: Pleural effusion, vascular congestion, suspected sleep apnea syndrome, chronic renal failure, anemia, and history of cardiomyopathy. The patient with positive stool for occult blood. We will consult Nephrology regarding increasing BUN and creatinine. We will consult gastrointestinal for positive stool occult blood. Continue gastric prophylaxis and deep venous thrombosis prophylaxis. The patient presently has sequential compression devices for deep venous thrombosis prophylaxis. We will continue continuous positive airway pressure use at bedtime. Continue inhaled bronchodilators. The patient will need sleep study and full pulmonary function test as outpatient. Fall precautions. The patient would benefit from rehabilitation physical therapy. This patient was seen and examined with Dr. Stevenson. Discussed assessment and plan as described above. Thank you for this consult. We will follow with you. Tommy Guzmán APN Monique Stevenson MD
--- NOTE | 2018-11-01 13:24 | CP.PCM.PN ---
Subjective - Date & Time of Evaluation Date of Evaluation: 11/01/18 Time of Evaluation: 12:30 - Subjective Subjective: Infectious Disease Follow Up: November 01, 2018 83 yo AA female with PMHx of hypertension, arthritis, and diabetes presented to [facility] [facility] with hypoglycemia The patient is a [facility] resident. Glucose of 33 in the field. Patient appears awake and alert now. Patient was hypothermic on admission with temperature down to 93.1 F. Temperatures normalized today. No new issues. Feeling better. Cultures of u rine still pending. Urinalysis strongly suggestive of UTI. Cultures of urine taken after at least 24 hours of antibiotics so the urine culture might not grow any organisms. Patient feeling better overall. Objective - Vital Signs/Intake and Output Vital Signs (last 24 hours): Temp Pulse Resp BP Pulse Ox 98.1 F 84 18 160/62 H 98 11/01/18 08:05 11/01/18 09:09 11/01/18 08:05 11/01/18 09:09 11/01/18 08:05 Intake and Output: 11/01/18 11/01/18 06:59 18:59 Intake Total 300 Output Total 450 Balance -150 - Medications Medications: Current Medications Albuterol/Ipratropium (Duoneb 3 Mg/0.5 Mg (3 Ml) Ud) 3 ml IH [id number] [facility] Last Admin: 11/01/18 11:10 Dose: 3 ml Albuterol/Ipratropium (Duoneb 3 Mg/0.5 Mg (3 Ml) Ud) 3 ml IH Q2H PRN PRN Reason: Shortness of Breath Atorvastatin Calcium (Lipitor) 10 mg PO DIN [facility] Last Admin: 10/31/18 17:16 Dose: 10 mg Docusate Sodium (Colace) 100 mg PO TID [facility] Last Admin: 11/01/18 09:09 Dose: 100 mg Ferrous Sulfate (Feosol) 324 mg PO DAILY [facility] Last Admin: 11/01/18 09:10 Dose: 324 mg Furosemide (Lasix) 40 mg PO DAILY [facility] Last Admin: 11/01/18 09:07 Dose: 40 mg Gabapentin (Neurontin) 100 mg PO TID [facility]; Protocol Last Admin: 11/01/18 09:08 Dose: 100 mg Guaifenesin (Robitussin) 200 mg PO Q4H PRN PRN Reason: Cough and congestion Last Admin: 10/29/18 09:18 Dose: 200 mg Hydralazine HCl (Apresoline) 100 mg PO TID [facility] Last Admin: 11/01/18 09:09 Dose: 100 mg Piperacillin Sod/Tazobactam Sod (Zosyn 2.25 Gm In 0.9% 100 Ml) 2.25 gm in 100 mls @ 100 mls/hr IVPB Q8 [facility]; Protocol Last Admin: 11/01/18 05:54 Dose: 100 mls/hr Insulin Human Regular (Humulin R Low) 0 units SC ACHS [facility]; Protocol Last Admin: 11/01/18 12:28 Dose: 1 units Lactulose (Enulose) 20 gm PO DAILY PRN PRN Reason: Constipation Levofloxacin (Levaquin) 250 mg PO QOTHERDAY [facility]; Protocol Methylprednisolone (Solu-Medrol) 20 mg IVP Q12 [facility] Last Admin: 11/01/18 09:08 Dose: 20 mg Pantoprazole Sodium (Protonix Ec Tab) 20 mg PO 0600,1600 [facility] Last Admin: 10/31/18 17:16 Dose: 20 mg Vitamin B Complex/Vit C/Folic Acid (Nephro-Quin) 1 tab PO 0800 [facility] Last Admin: 11/01/18 08:37 Dose: 1 tab - Labs Labs: 11/01/18 09:35 11/01/18 06:30 PT 12.2 SECONDS (9.4-12.5) 10/28/18 10:00 INR 1.06 10/28/18 10:00 APTT 27.8 Seconds (25.1-36.5) 10/28/18 10:00 - Constitutional Appears: Non-toxic, No Acute Distress, Chronically Ill - Head Exam Head Exam: ATRAUMATIC, NORMOCEPHALIC - Eye Exam Eye Exam: EOMI, PERRL Pupil Exam: NORMAL ACCOMODATION, PERRL - ENT Exam ENT Exam: Mucous Membranes Moist, Normal External Ear Exam, TM's Normal Bilaterally - Neck Exam Neck Exam: Full ROM, Normal Inspection - Respiratory Exam Respiratory Exam: Clear to Ausculation Bilateral, NORMAL BREATHING PATTERN. absent: Rales, Rhonchi, Wheezes - Cardiovascular Exam Cardiovascular Exam: REGULAR RHYTHM, RRR, +S1, +S2 - GI/Abdominal Exam GI & Abdominal Exam: Soft, Normal Bowel Sounds. absent: Distended, Tenderness - Extremities Exam Extremities Exam: Full ROM, Normal Inspection - Neurological Exam Neurological Exam: Alert, Awake, CN II-XII Intact, Oriented x3 - Psychiatric Exam Psychiatric exam: Normal Affect, Normal Mood - Skin Skin Exam: Intact, Normal Color Assessment and Plan - Assessment and Plan (Free Text) Assessment: 83 yo AA female with hypoglycemia and hypothermia on presentation from [facility]. No leukocytosis. Chest X-ray showing moderate cardiomegaly and moderate vascular congestion with right sided pleural effusion. Started on Vancomycin IV and Zosyn. Continue with Zosyn for now. Supportive care. Check urine culture and analysis. Noted that patient is incontinent of urine. Supposedly there are recent positive cultures for urine at [facility] Given hypothermia, must rule out sepsis. Urinalysis strongly suggestive of UTI. Urine cultures negative but they were taken 24 hours after starting antibiotics. Supportive care. Procalcitonin of 8.23. Can retest procalcitonin. Remains on Zosyn. Awaiting repeat procalcitonin. Thank you for allowing me to participate in the care of the patient, we will follow with you.
--- NOTE | 2018-11-01 13:27 | CP.PCM.PN ---
Subjective - Date & Time of Evaluation Date of Evaluation: 11/01/18 Time of Evaluation: 12:45 - Subjective Subjective: Infectious Disease Follow Up: November 01, 2018 79 yo female found unconscious by her daughter at patient's home. Brought to [facility] for medical care and found to have Lactic acid of 7.6 on admission and procalcitonin of 4.12. The patient is currently awake and alert. Cultures of the urine with E. coli and cultures of the chest with Corynebacterium. The patient has received Zosyn IV and Vancomycin IV for antibiotic treatment. Zosyn started on 10/22/2018. Zosyn completed. Patient making no complaints at this time. Brought to Transitional Care. Objective - Vital Signs/Intake and Output Vital Signs (last 24 hours): Temp Pulse Resp BP Pulse Ox 98.1 F 84 18 160/62 H 98 11/01/18 08:05 11/01/18 09:09 11/01/18 08:05 11/01/18 09:09 11/01/18 08:05 Intake and Output: 11/01/18 11/01/18 06:59 18:59 Intake Total 300 Output Total 450 Balance -150 - Medications Medications: Current Medications Albuterol/Ipratropium (Duoneb 3 Mg/0.5 Mg (3 Ml) Ud) 3 ml IH [id number] [facility] Last Admin: 11/01/18 11:10 Dose: 3 ml Albuterol/Ipratropium (Duoneb 3 Mg/0.5 Mg (3 Ml) Ud) 3 ml IH Q2H PRN PRN Reason: Shortness of Breath Atorvastatin Calcium (Lipitor) 10 mg PO DIN [facility] Last Admin: 10/31/18 17:16 Dose: 10 mg Docusate Sodium (Colace) 100 mg PO TID [facility] Last Admin: 11/01/18 09:09 Dose: 100 mg Ferrous Sulfate (Feosol) 324 mg PO DAILY [facility] Last Admin: 11/01/18 09:10 Dose: 324 mg Furosemide (Lasix) 40 mg PO DAILY [facility] Last Admin: 11/01/18 09:07 Dose: 40 mg Gabapentin (Neurontin) 100 mg PO TID [facility]; Protocol Last Admin: 11/01/18 09:08 Dose: 100 mg Guaifenesin (Robitussin) 200 mg PO Q4H PRN PRN Reason: Cough and congestion Last Admin: 10/29/18 09:18 Dose: 200 mg Hydralazine HCl (Apresoline) 100 mg PO TID [facility] Last Admin: 11/01/18 09:09 Dose: 100 mg Piperacillin Sod/Tazobactam Sod (Zosyn 2.25 Gm In 0.9% 100 Ml) 2.25 gm in 100 mls @ 100 mls/hr IVPB Q8 [facility]; Protocol Last Admin: 11/01/18 05:54 Dose: 100 mls/hr Insulin Human Regular (Humulin R Low) 0 units SC ACHS [facility]; Protocol Last Admin: 11/01/18 12:28 Dose: 1 units Lactulose (Enulose) 20 gm PO DAILY PRN PRN Reason: Constipation Levofloxacin (Levaquin) 250 mg PO QOTHERDAY [facility]; Protocol Methylprednisolone (Solu-Medrol) 20 mg IVP Q12 [facility] Last Admin: 11/01/18 09:08 Dose: 20 mg Pantoprazole Sodium (Protonix Ec Tab) 20 mg PO 0600,1600 [facility] Last Admin: 10/31/18 17:16 Dose: 20 mg Vitamin B Complex/Vit C/Folic Acid (Nephro-Quin) 1 tab PO 0800 [facility] Last Admin: 11/01/18 08:37 Dose: 1 tab - Labs Labs: 11/01/18 09:35 11/01/18 06:30 PT 12.2 SECONDS (9.4-12.5) 10/28/18 10:00 INR 1.06 10/28/18 10:00 APTT 27.8 Seconds (25.1-36.5) 10/28/18 10:00 - Constitutional Appears: Non-toxic, No Acute Distress, Chronically Ill - Head Exam Head Exam: ATRAUMATIC, NORMOCEPHALIC - Eye Exam Eye Exam: EOMI, PERRL Pupil Exam: NORMAL ACCOMODATION, PERRL - ENT Exam ENT Exam: Mucous Membranes Moist, Normal External Ear Exam, TM's Normal Bilater ally - Neck Exam Neck Exam: Full ROM, Normal Inspection - Respiratory Exam Respiratory Exam: Clear to Ausculation Bilateral, NORMAL BREATHING PATTERN. absent: Rales, Rhonchi, Wheezes - Cardiovascular Exam Cardiovascular Exam: REGULAR RHYTHM, RRR, +S1, +S2 - GI/Abdominal Exam GI & Abdominal Exam: Soft, Normal Bowel Sounds. absent: Distended, Tenderness - Extremities Exam Extremities Exam: Full ROM, Normal Inspection - Neurological Exam Neurological Exam: Alert, Awake, CN II-XII Intact, Oriented x3 - Psychiatric Exam Psychiatric exam: Normal Affect, Normal Mood - Skin Skin Exam: Intact, Normal Color Assessment and Plan - Assessment and Plan (Free Text) Assessment: 79 y old female, PMhx HTN, HLD, CAD s/p CABG x 2, DM2, hypothyroidism, and breast ca s/p lumpectomy of L breast in remission, who presented with DKA, NSTEMI, new T wave inversions and RBBB on EKG on admission. The patient also had UTI with E. coli. Started on Zosyn for antibiotic coverage. Blood cultures negative for [address] showing ascites but no abscess. Continue on Zosyn IV for UTI with E. coli and Corynebacterium. 7 to 10 days of total treatment for antibiotics. Zosyn completed now. Supportive care. Now in Transitional care. Thank you for allowing me to participate in the care of the patient, we will follow with you.
[2018-11-01 14:39] VITALS: TEMP 97.8
[2018-11-01 15:35] VITALS: RESP 17
[2018-11-01] MEDS: Pantoprazole 20 mg EC Tab PO SCH (17:55)
[2018-11-01] MEDS: guaiFENesin 200 mg/10 ml Syrup UD PO PRN (17:56)
[2018-11-01 18:01] VITALS: BP 172/74; PULSE 87
--- NOTE | 2018-11-01 22:06 | CP.PCM.CON ---
History of Present Illness - History of Present Illness History of Present Illness: p Past Patient History - Infectious Disease Hx of Infectious Diseases: None - Past Medical History & Family History Past Medical History?: Yes - Past Social History Smoking Status: Never Smoked - CARDIAC Hx Cardiac Disorders: Yes (Mod cardiomegaly) Hx Hypertension: Yes - PULMONARY Hx Respiratory Disorders: Yes (pleural effusion) Hx Pneumonia: Yes - NEUROLOGICAL Hx Neurological Disorder: No - HEENT Hx HEENT Problems: No - RENAL Hx Chronic Kidney Disease: No - ENDOCRINE/METABOLIC Hx Endocrine Disorders: Yes Hx Diabetes Mellitus Type 2: Yes Other/Comment: hypoglycemia - HEMATOLOGICAL/ONCOLOGICAL Hx Blood Disorders: Yes Hx Anemia: Yes - INTEGUMENTARY Hx Dermatological Problems: Yes Other/Comment: ble +4 pitting edema, dark discolored skin, multiple blisters in various stages of healing, dry tight flakey skin - MUSCULOSKELETAL/RHEUMATOLOGICAL Hx Arthritis: Yes - GASTROINTESTINAL Hx Gastrointestinal Disorders: Yes (obese) Hx Crohn's Disease: No Hx Diverticulitis: No Hx Gall Bladder Disease: No Hx Pancreatitis: No Other/Comment: hemorrhoids - GENITOURINARY/GYNECOLOGICAL Hx Genitourinary Disorders: Yes Hx Incontinence: Yes Hx Urinary Tract Infection: Yes - PSYCHIATRIC Hx Psychophysiologic Disorder: No Hx Substance Use: No - SURGICAL HISTORY Hx Surgeries: Yes Hx Cholecystectomy: Yes (over 10 yrs. ago) Other/Comment: herniorraphy - ANESTHESIA Hx Anesthesia: Yes Hx Anesthesia Reactions: No Hx Malignant Hyperthermia: No Meds Home Medications: Home Medication List Medication Instructions Recorded Confirmed Type Albuterol/Ipratropium [Duoneb 3 3 ml IH Q2H PRN neb 11/01/18 Rx mg/0.5 mg (3 ml) UD] Atorvastatin [Lipitor] 10 mg PO DIN tab 11/01/18 Rx levoFLOXacin [Levaquin] 250 mg PO QOTHERDAY 2 Days tab 11/01/18 Rx Allergies/Adverse Reactions: Allergies Allergy/AdvReac Type Severity Reaction Status Date / Time No Known Allergies Allergy Verified 09/26/18 18:03 Results - Vital Signs Recent Vital Signs: Last Vital Signs Temp 97.8 F 11/01/18 15:23 Pulse 87 11/01/18 17:56 Resp 17 11/01/18 15:23 BP 172/74 H 11/01/18 17:56 Pulse Ox 98 11/01/18 08:05 - Labs Result Diagrams: 11/01/18 09:35 11/01/18 06:30 Labs: Laboratory Results - last 24 hr 11/01/18 11/01/18 11/01/18 06:30 06:30 06:30 WBC 10.4 RBC 2.88 L Hgb 7.5 L Hct 25.5 L MCV 88.5 MCH 26.0 MCHC 29.4 L RDW 16.5 H Plt Count 215 MPV 11.1 H Sodium 140 Potassium 5.1 H Chloride 109 H Carbon Dioxide 25 Anion Gap 12 BUN 59 H Creatinine 3.6 H Est GFR ( Amer) 15 Est GFR (Non-Af Amer) 12 POC Glucose (mg/dL) Random Glucose 223 H Calcium 7.8 L Total Bilirubin 0.3 AST 37 H D ALT 23 Alkaline Phosphatase 118 Total Protein 6.3 Albumin 3.1 Globulin 3.2 Albumin/Globulin Ratio 1.0 L Procalcitonin 6.05 H Stool Occult Blood Blood Type Antibody Screen Crossmatch BBK History Checked 11/01/18 11/01/18 11/01/18 06:55 09:35 09:35 WBC RBC Hgb 8.0 L Hct 27.0 L MCV MCH MCHC RDW Plt Count MPV Sodium Potassium Chloride Carbon Dioxide Anion Gap BUN Creatinine Est GFR ( Amer) Est GFR (Non-Af Amer) POC Glucose (mg/dL) 209 H Random Glucose Calcium Total Bilirubin AST ALT Alkaline Phosphatase Total Protein Albumin Globulin Albumin/Globulin Ratio Procalcitonin Stool Occult Blood Blood Type B POSITIVE Antibody Screen Negative Crossmatch See Detail BBK History Checked Patient has bt 11/01/18 11/01/18 11/01/18 10:29 11:02 16:28 WBC RBC Hgb Hct MCV MCH MCHC RDW Plt Count MPV Sodium Potassium Chloride Carbon Dioxide Anion Gap BUN Creatinine Est GFR ( Amer) Est GFR (Non-Af Amer) POC Glucose (mg/dL) 199 H 251 H Random Glucose Calcium Total Bilirubin AST ALT Alkaline Phosphatase Total Protein Albumin Globulin Albumin/Globulin Ratio Procalcitonin Stool Occult Blood Positive H Blood Type Antibody Screen Crossmatch BBK History Checked Assessment & Plan - Assessment and Plan (Free Text) Assessment: p - Date & Time Date: 11/01/18 Time: 11:00
== END 2018-11-01 20:53 | DRG 638 ==
LOC: ED 09:22 → ERH 12:50 → 5RSO 15:23
PROVIDERS: ADMIT Internal Medicine; ATTEND Internal Medicine
PROC: 5A09357 Assistance with Respiratory Ventilation, Less than 24 Consecutive Hours, Continuous Positive Airway Pressure (ICD-10-PCS; principal; 2018-10-29)
PROC: 30233N1 Transfusion of Nonautologous Red Blood Cells into Peripheral Vein, Percutaneous Approach (ICD-10-PCS; 2018-11-01)
DX: E11.649 Type 2 diabetes mellitus with hypoglycemia without coma (principal); I45.2 Bifascicular block; I13.0 Hypertensive heart and chronic kidney disease with heart failure and stage 1 through stage 4 chronic kidney disease, or unspecified chronic kidney disease; N39.0 Urinary tract infection, site not specified; I42.9 Cardiomyopathy, unspecified; L97.909 Non-pressure chronic ulcer of unspecified part of unspecified lower leg with unspecified severity; E11.622 Type 2 diabetes mellitus with other skin ulcer; I50.9 Heart failure, unspecified; N18.9 Chronic kidney disease, unspecified; R68.0 Hypothermia, not associated with low environmental temperature; D64.9 Anemia, unspecified; E03.9 Hypothyroidism, unspecified; E11.22 Type 2 diabetes mellitus with diabetic chronic kidney disease; I25.10 Atherosclerotic heart disease of native coronary artery without angina pectoris; E87.8 Other disorders of electrolyte and fluid balance, not elsewhere classified; G47.30 Sleep apnea, unspecified; E78.5 Hyperlipidemia, unspecified; R32 Unspecified urinary incontinence; M19.90 Unspecified osteoarthritis, unspecified site; R19.5 Other fecal abnormalities; E66.9 Obesity, unspecified; Z68.35 Body mass index [BMI] 35.0-35.9, adult; Z87.891 Personal history of nicotine dependence; I25.2 Old myocardial infarction; Z95.1 Presence of aortocoronary bypass graft; Z85.3 Personal history of malignant neoplasm of breast; Z79.4 Long term (current) use of insulin